=== PATIENT | female | born 1950 | race Caucasian/White ===

== ENCOUNTER → 2017-07-02 | Outpatient (CLI) | payer OTHER ==
[~2017-07-02] MED LIST: ECOTRIN81 MG; KETO10TA2 PO; SYNTHROID50 MCG
== END | disposition home or self-care (01) ==
LOC: RAD 11:02
DX: M25.561 Pain in right knee (principal)

== ENCOUNTER 2017-07-13 10:13 | Outpatient (CLI) | payer OTHER | END 2017-07-13 10:58 | disposition home or self-care (01) | LOC: LAB 10:13 | DX: D68.59 Other primary thrombophilia (principal); D68.61 Antiphospholipid syndrome; D51.3 Other dietary vitamin B12 deficiency anemia; E72.12 Methylenetetrahydrofolate reductase deficiency; E72.11 Homocystinuria; G90.513 Complex regional pain syndrome I of upper limb, bilateral; G90.523 Complex regional pain syndrome I of lower limb, bilateral; E03.8 Other specified hypothyroidism; M23.301 Other meniscus derangements, unspecified lateral meniscus, left knee; R31.21 Asymptomatic microscopic hematuria; N39.0 Urinary tract infection, site not specified; D50.8 Other iron deficiency anemias; I10 Essential (primary) hypertension; E22.9 Hyperfunction of pituitary gland, unspecified; K90.89 Other intestinal malabsorption; R51 Headache ==

== ENCOUNTER → 2017-11-15 07:13 | Outpatient (CLI) | payer OTHER | END | disposition home or self-care (01) | LOC: LAB 07:13 | DX: I87.2 Venous insufficiency (chronic) (peripheral) (principal) ==

== ENCOUNTER 2018-01-18 08:23 | Outpatient (CLI) | payer OTHER | END 2018-01-18 19:15 | disposition home or self-care (01) | LOC: LAB 08:23 | DX: D68.8 Other specified coagulation defects (principal); D23.70 Other benign neoplasm of skin of unspecified lower limb, including hip; D68.59 Other primary thrombophilia; D68.61 Antiphospholipid syndrome; D51.3 Other dietary vitamin B12 deficiency anemia; E72.12 Methylenetetrahydrofolate reductase deficiency; E72.11 Homocystinuria; G90.513 Complex regional pain syndrome I of upper limb, bilateral; G90.523 Complex regional pain syndrome I of lower limb, bilateral; E03.8 Other specified hypothyroidism; M23.301 Other meniscus derangements, unspecified lateral meniscus, left knee; R31.21 Asymptomatic microscopic hematuria; N39.0 Urinary tract infection, site not specified; D50.8 Other iron deficiency anemias; D51.8 Other vitamin B12 deficiency anemias; I10 Essential (primary) hypertension; E55.9 Vitamin D deficiency, unspecified; K90.89 Other intestinal malabsorption ==

== ENCOUNTER 2018-01-22 08:53 | Outpatient (CLI) | payer OTHER | END 2018-01-22 09:08 | disposition home or self-care (01) | LOC: LAB 08:53 | DX: M81.0 Age-related osteoporosis without current pathological fracture (principal); E03.8 Other specified hypothyroidism ==

== ENCOUNTER 2018-06-03 10:33 | Outpatient (CLI) | payer OTHER | END 2018-06-03 15:00 | disposition home or self-care (01) | LOC: LAB 10:33 | DX: D68.8 Other specified coagulation defects (principal); D23.70 Other benign neoplasm of skin of unspecified lower limb, including hip ==

== ENCOUNTER → 2018-08-09 06:42 | Outpatient (CLI) | payer OTHER | END | disposition home or self-care (01) | LOC: LAB 06:42 | DX: E03.8 Other specified hypothyroidism (principal); D51.3 Other dietary vitamin B12 deficiency anemia; E72.12 Methylenetetrahydrofolate reductase deficiency; E72.11 Homocystinuria; G90.513 Complex regional pain syndrome I of upper limb, bilateral; G90.523 Complex regional pain syndrome I of lower limb, bilateral; M23.301 Other meniscus derangements, unspecified lateral meniscus, left knee; N39.0 Urinary tract infection, site not specified; D50.8 Other iron deficiency anemias; D51.8 Other vitamin B12 deficiency anemias; K90.89 Other intestinal malabsorption ==

== ENCOUNTER 2019-06-11 16:45 | Outpatient (CLI) | payer OTHER | END 2019-06-11 16:53 | disposition home or self-care (01) | LOC: LAB 16:45 | DX: R50.9 Fever, unspecified (principal); J11.1 Influenza due to unidentified influenza virus with other respiratory manifestations ==

== ENCOUNTER 2019-12-11 13:12 | Outpatient (CLI) | payer OTHER | END 2019-12-11 13:19 | disposition home or self-care (01) | LOC: RAD 13:12 | PROVIDERS: ATTEND Orthopaedic Surgery | DX: M25.561 Pain in right knee (principal); M65.342 Trigger finger, left ring finger; M79.642 Pain in left hand ==

== ENCOUNTER → 2019-12-18 06:40 | Outpatient (CLI) | payer OTHER | END | disposition home or self-care (01) | LOC: LAB 06:40 | PROVIDERS: ATTEND Orthopaedic Surgery | DX: M85.88 Other specified disorders of bone density and structure, other site (principal); E55.9 Vitamin D deficiency, unspecified; E21.2 Other hyperparathyroidism; M81.8 Other osteoporosis without current pathological fracture; E88.89 Other specified metabolic disorders; E56.1 Deficiency of vitamin K ==

== ENCOUNTER → 2020-01-28 07:59 | Outpatient (CLI) | payer OTHER | END | disposition home or self-care (01) | LOC: LAB 07:59 | PROVIDERS: ATTEND Orthopaedic Surgery | DX: N17.8 Other acute kidney failure (principal) ==

== ENCOUNTER 2020-04-02 08:43 | Outpatient (CLI) | payer OTHER ==
[2020-04-02] MEDS ORDERED: KETO10TA2 PO (13:33)
[2020-04-02] MEDS ORDERED: NORFLEX100MG PO (13:33)
== END 2020-04-02 08:46 | disposition home or self-care (01) ==
LOC: LAB 08:43
PROVIDERS: ATTEND Internal Medicine Hematology & Oncology
DX: D50.8 Other iron deficiency anemias (principal); I10 Essential (primary) hypertension; R74.02 Elevation of levels of lactic acid dehydrogenase [LDH]; K76.89 Other specified diseases of liver; D51.8 Other vitamin B12 deficiency anemias; E55.9 Vitamin D deficiency, unspecified; E03.8 Other specified hypothyroidism; D68.59 Other primary thrombophilia; E72.11 Homocystinuria; D51.3 Other dietary vitamin B12 deficiency anemia; E72.12 Methylenetetrahydrofolate reductase deficiency; G90.513 Complex regional pain syndrome I of upper limb, bilateral; G90.523 Complex regional pain syndrome I of lower limb, bilateral; M23.301 Other meniscus derangements, unspecified lateral meniscus, left knee; R31.21 Asymptomatic microscopic hematuria; N39.0 Urinary tract infection, site not specified

== ENCOUNTER 2020-04-02 10:35 | Emergency (ER) | payer OTHER ==
[~2020-04-02] VITALS: Ht 160 cm; Wt 61.2 kg
[2020-04-02] MEDS ORDERED: KETO10TA2 PO (13:33)
[2020-04-02] MEDS ORDERED: NORFLEX100MG PO (13:33)
== END 2020-04-02 13:37 | disposition home or self-care (01) ==
LOC: ER 10:35
DX: S60.221A Contusion of right hand, initial encounter (principal); M54.2 Cervicalgia; W18.09XA Striking against other object with subsequent fall, initial encounter; Y93.89 Activity, other specified; Y92.413 State road as the place of occurrence of the external cause; Y99.8 Other external cause status

== ENCOUNTER 2024-11-14 08:21 | Outpatient (CLI) | payer OTHER ==
[~2024-11-14 08:21] MED LIST changes: +DICLOFENAC POTA50 MG PO; +NORFLEX100MG PO
[2024-11-15 09:08] LABS: CALCIUM IONIZED 5.1 mg/dL (4.5-5.6)
== END 2024-11-14 08:22 | disposition home or self-care (01) ==
LOC: LAB 08:21
PROVIDERS: ATTEND Orthopaedic Surgery
DX: E55.9 Vitamin D deficiency, unspecified (principal); M85.9 Disorder of bone density and structure, unspecified; E56.1 Deficiency of vitamin K; E21.3 Hyperparathyroidism, unspecified; E88.9 Metabolic disorder, unspecified; M81.8 Other osteoporosis without current pathological fracture; D50.0 Iron deficiency anemia secondary to blood loss (chronic)

== ENCOUNTER 2024-11-14 09:09 | Outpatient (CLI) | payer OTHER | END 2024-11-14 09:19 | disposition home or self-care (01) | LOC: RAD 09:09 | PROVIDERS: ATTEND Orthopaedic Surgery | DX: M25.531 Pain in right wrist (principal); M79.644 Pain in right finger(s); M25.561 Pain in right knee ==